=== PATIENT | female | born 1940 | race Caucasian/White ===

== ENCOUNTER 2016-11-30 09:46 | Observation (INO) | payer MEDICARE, BC ==
[~2016-11-30] VITALS: Ht 165.1 cm; Wt 73.4 kg
[~2016-11-30 09:46] MED LIST: ASCO500T8 PO; ATOR10TA9 PO; CILO100T PO; DABI150C PO; DIGO250T PO; DILT120T3 PO; METO25TA35 PO; MULT-516 PO; OMEG1CAP35 PO; OXYB10TA PO; OXYC-302 PO; VALS1TAB24 PO; VIT1TABL32 PO; VITA400C42 PO; [UNRECOGNIZED DRUG - CODE] PO; [UNRECOGNIZED DRUG - OTHER]
[2016-11-30] MEDS ORDERED: SODIUM CHLORIDE 0.9% 1,000 ML IV SCH (10:39)
[2016-11-30 10:52] VITALS: BP 146/85
[2016-11-30] MEDS ORDERED: OXYB5TAB7 PO (10:59)
[2016-11-30 11:15] LABS: HEMOGLOBIN 15.4 g/dL (11.7-16.4)
[2016-11-30 11:24] LABS: ASPARTATE AMINO TRANSFERASE 13 U/L (15-37); BLOOD UREA NITROGEN 14 mg/dL (7-18)
[2016-11-30] MEDS ORDERED: LIDOCAINE 2%, 20ML ONE (11:26)
[2016-11-30] MEDS ORDERED: MIDAZOLAM 1 MG/ML, 5ML ONE (11:26)
[2016-11-30] MEDS ORDERED: FENTANYL PF 100 MCG/2ML ONE (11:26)
[2016-11-30] MEDS ORDERED: CEFAZOLIN PMX 1GM/50ML 50 ML ONE (11:26)
[2016-11-30] MEDS ORDERED: CEFAZOLIN 1,000 MG ONE (11:26)
[2016-11-30] MEDS ORDERED: ONDANSETRON 2MG/ML, 2ML ONE (11:46)
[2016-11-30] MEDS ORDERED: ACETAMINOPHEN 325 MG TABLET PO PRN (12:30)
[2016-11-30] MEDS ORDERED: ZOLPIDEM 5MG TABLET PO PRN (12:30)
[2016-11-30 16:13] VITALS: BP 146/81
[2016-11-30] MEDS: DABIGATRAN 150 MG CAPSULE PO SCH (17:25)
[2016-11-30] MEDS: METOPROLOL TARTRATE 25 MG TABLET PO SCH (17:58)
[2016-11-30 20:00] VITALS: BP 149/80
[2016-11-30] MEDS: CEFAZOLIN PMX 1GM/50ML 50 ML IVPB SCH (20:34)
[2016-11-30] MEDS: SODIUM CHLORIDE FLUSH 10ML SYR IVF SCH (20:34)
[2016-11-30] MEDS ORDERED: ATORVASTATIN 10 MG TABLET PO SCH (21:00)
[2016-12-01 02:00] VITALS: BP 149/85
[2016-12-01] MEDS: CEFAZOLIN PMX 1GM/50ML 50 ML IVPB SCH (04:17)
[2016-12-01] MEDS: METOPROLOL TARTRATE 25 MG TABLET PO SCH (05:50)
[2016-12-01] MEDS: DABIGATRAN 150 MG CAPSULE PO SCH (08:42)
[2016-12-01] MEDS: SODIUM CHLORIDE FLUSH 10ML SYR IVF SCH (08:46)
[2016-12-01] MEDS ORDERED: DILTIAZEM 240 MG CAP.ER.24H PO SCH (09:00)
[2016-12-01] MEDS ORDERED: VITAMIN E 400 UNITS CAPSULE PO SCH (09:00)
[2016-12-01] MEDS ORDERED: MULTIVITAMIN 1 TABLET PO SCH (09:00)
[2016-12-01] MEDS ORDERED: DIGOXIN 0.25 MG TABLET PO SCH (09:00)
[2016-12-01] MEDS ORDERED: OXYBUTYNIN CHLORIDE 5 MG TABLET PO SCH (09:00)
[2016-12-01] MEDS ORDERED: MULTIVITS,STRESS FORMULA 1 TABLET PO SCH (09:00)
[2016-12-01] MEDS ORDERED: OMEGA-3/FISH OIL CAPSULE PO SCH (09:00)
[2016-12-01] MEDS ORDERED: ASCORBIC ACID 500 MG TABLET PO SCH (09:00)
[2016-12-01 09:15] VITALS: BP 175/85
== END 2016-12-01 12:20 | disposition home or self-care (01) ==
LOC: CACL 09:46 → ORIP 12:17 → 5SO 14:30
PROVIDERS: ADMIT Internal Medicine Cardiovascular Disease; ATTEND Internal Medicine Cardiovascular Disease
DX: I49.5 Sick sinus syndrome (principal); I48.0 Paroxysmal atrial fibrillation; I10 Essential (primary) hypertension; E11.9 Type 2 diabetes mellitus without complications
CPT/HCPCS: 33207; 36415; 71010; 71020; 80053; 85025; 93005; 96365; 96374; C1779; C1786; C1892; G0378; J0690; J2250; J2405; J3010; J3490

== ENCOUNTER → 2016-12-10 | Outpatient (CLI) | payer MEDICARE, BC ==
[~2016-12-10] MED LIST changes: +OXYB5TAB7 PO
== END | disposition home or self-care (01) ==
LOC: CFH 11:33
PROVIDERS: ATTEND Internal Medicine Cardiovascular Disease
DX: J84.10 Pulmonary fibrosis, unspecified (principal); Z95.0 Presence of cardiac pacemaker; Z95.5 Presence of coronary angioplasty implant and graft
CPT/HCPCS: 71020

== ENCOUNTER 2017-07-04 06:37 | Observation (INO) | payer MEDICARE, BC ==
[2017-07-03 15:03] VITALS: BP 149/77
[2017-07-03 15:22] LABS: HEMATOCRIT 46.7 % (34.6-47.8); HEMOGLOBIN 15.3 g/dL (11.7-16.4)
[2017-07-03 15:32] LABS: ASPARTATE AMINO TRANSFERASE 13 U/L (15-37); BLOOD UREA NITROGEN 9 mg/dL (7-18)
[~2017-07-04] VITALS: Ht 165.1 cm; Wt 65.4 kg
[~2017-07-04 06:37] MED LIST changes: +CALC-118 PO; +CEPH-368 PO; +LACT1CAP61 PO; +METR500T8 PO; +OMEG-158 PO; -OMEG1CAP35 PO
[2017-07-04] MEDS ORDERED: SODIUM CHLORIDE 0.9% 1,000 ML IV SCH (06:48)
[2017-07-04] MEDS ORDERED: FENTANYL PF 100 MCG/2ML ONE (08:16)
[2017-07-04] MEDS ORDERED: MIDAZOLAM 1 MG/ML, 5ML ONE (08:16)
[2017-07-04] MEDS ORDERED: LIDOCAINE 2%, 20ML ONE (08:16)
[2017-07-04] MEDS ORDERED: ZOLPIDEM 5MG TABLET PO PRN (09:30)
[2017-07-04] MEDS ORDERED: OXYBUTYNIN CHLORIDE 5 MG TABLET PO SCH (09:30)
[2017-07-04 09:52] VITALS: BP 148/68
[2017-07-04] MEDS: CEPHALEXIN 500 MG CAPSULE PO SCH ×3 (11:00→22:48)
[2017-07-04 13:37] VITALS: BP 155/89
[2017-07-04 20:05] VITALS: BP 119/73
[2017-07-04] MEDS ORDERED: ATORVASTATIN 10 MG TABLET PO SCH (21:00)
[2017-07-04] MEDS: DABIGATRAN 150 MG CAPSULE PO SCH (22:47)
[2017-07-04] MEDS: METOPROLOL TARTRATE 50 MG TABLET PO SCH (22:47)
[2017-07-04] MEDS: CILOSTAZOL 100 MG TABLET PO SCH (22:47)
[2017-07-05 01:22] VITALS: BP 154/96
[2017-07-05] MEDS: CEPHALEXIN 500 MG CAPSULE PO SCH ×2 (05:33→11:25)
[2017-07-05 06:47] VITALS: BP 166/97
[2017-07-05] MEDS ORDERED: VIT A C PO SCH (09:00)
[2017-07-05] MEDS ORDERED: EPA PO SCH (09:00)
[2017-07-05] MEDS ORDERED: VITAMIN E MIXED 400 UNIT PO SCH (09:00)
[2017-07-05] MEDS ORDERED: CALCIUM CITRATE PO SCH (09:00)
[2017-07-05] MEDS ORDERED: RHAMNOSUS GG PO SCH (09:00)
[2017-07-05] MEDS ORDERED: VITAMIN D3 PO SCH (09:00)
[2017-07-05] MEDS ORDERED: INULIN PO SCH (09:00)
[2017-07-05] MEDS ORDERED: ASCORBIC ACID 500 MG TABLET PO SCH (09:00)
[2017-07-05] MEDS ORDERED: FISH OIL PO SCH (09:00)
[2017-07-05] MEDS ORDERED: LUTEIN PO SCH (09:00)
[2017-07-05] MEDS ORDERED: OMEGA PO SCH (09:00)
[2017-07-05] MEDS ORDERED: DHA PO SCH (09:00)
[2017-07-05] MEDS ORDERED: MULTIVITAMIN 1 TABLET PO SCH (09:00)
[2017-07-05] MEDS ORDERED: MINERALS PO SCH (09:00)
[2017-07-05] MEDS ORDERED: [UNRECOGNIZED DRUG - OTHER] PO SCH (09:00)
[2017-07-05] MEDS: METOPROLOL TARTRATE 50 MG TABLET PO SCH (09:32)
[2017-07-05] MEDS: DABIGATRAN 150 MG CAPSULE PO SCH (11:25)
[2017-07-05] MEDS: CILOSTAZOL 100 MG TABLET PO SCH (11:27)
== END 2017-07-05 12:25 | disposition home or self-care (01) ==
LOC: CACL 06:37 → ORIP 09:23 → 5SO 09:45 → DCLOUNGE 07-05 12:08
PROVIDERS: ADMIT Internal Medicine Cardiovascular Disease; ATTEND Internal Medicine Cardiovascular Disease
DX: I48.91 Unspecified atrial fibrillation (principal); I44.2 Atrioventricular block, complete; I10 Essential (primary) hypertension
CPT/HCPCS: 36415; 71020; 80053; 85025; 93650; 99156; 99157; C1766; C1894; C2630; G0378; J2250; J3010; J3490

== ENCOUNTER → 2017-08-20 | Outpatient (CLI) | payer MEDICARE, BC ==
[~2017-08-20] MED LIST changes: +REGADENOSON 0.4 MG/5 ML SYRINGE ONE
== END | disposition home or self-care (01) ==
LOC: CFH 10:32
PROVIDERS: ATTEND Physician Assistant
DX: I08.3 Combined rheumatic disorders of mitral, aortic and tricuspid valves (principal); I11.9 Hypertensive heart disease without heart failure; Z87.891 Personal history of nicotine dependence; Z95.0 Presence of cardiac pacemaker
CPT/HCPCS: 78452; 93017; 93306; A9502; J2785